=== PATIENT | female | born 1990 | race Two or more races ===

== ENCOUNTER 2024-04-27 06:25 | Inpatient (IN) | payer OTHER ==
[~2024-04-27] VITALS: Ht 157.5 cm; Wt 3.2 kg
[2024-04-27 08:05] VITALS: BP 126/82
[2024-04-27 08:42] LABS: HEMATOCRIT 36.7 % (36.0-45.00); HEMOGLOBIN 12.7 g/dL (12.0-15.00); MEAN CELL VOLUME 88.2 fL (80.00-100.00); MEAN CORPUSCULAR HEMOGLOBIN 30.5 pg (27.00-32.0); MEAN CORPUSCULAR HGB CONC 34.6 g/dl (32.0-36.0); PLATELET COUNT 212 K/uL (150-450); RED BLOOD COUNT 4.15 M/uL (4.00-6.00); RED CELL DISTRIBUTION WIDTH 13.6 % (11.5-14.5)
[2024-04-27 08:43] LABS: URINE APPEARANCE Cloudy; URINE BILIRRUBIN Negative (NEGATIVE); URINE BLOOD Negative; URINE COLOR Dark Yellow; URINE GLUCOSE Negative (NEGATIVE); URINE KETONE Negative (NEGATIVE); URINE LEUKOCYTE Negative; URINE NITRATE Negative; URINE PROTEIN Trace (NEGATIVE)
[2024-04-27] MEDS ORDERED: RINGERS SOLUTION,LACTATED 1,000 ML IV SCH ×2 (08:45→22:30)
[2024-04-27 08:46] LABS: URINE BACTERIA 3652.2 uL (0.0-1933); URINE RBC 8.8 uL (0.0-20.8); URINE WBC 25.8 uL (0.0-23.2)
[2024-04-27 09:03] LABS: INR < 0.93; PARTIAL THROMBOPLASTIN TIME 23.1 SECONDS (22.0-34.0); PROTHROMBIN TIME 10.2 SECONDS (9.0-11.5)
[2024-04-27 09:04] LABS: URINE CAST 0.29 uL (0.0-1.40); URINE EPITHELIAL CELLS > 201.7 uL (0.0-38.8)
[2024-04-27] MEDS ORDERED: MISOPROSTOL 50 MCG TABLET ONE (10:36)
[2024-04-27] MEDS ORDERED: MISOPROSTOL 50 MCG TABLET VAG STA (10:58)
[2024-04-27 11:46] VITALS: BP 127/69
[2024-04-27] MEDS ORDERED: OXYTOCIN 20 UNITS/500ML RL PIGGYBAG IV ONE (15:02)
[2024-04-27] MEDS ORDERED: OXYTOCIN 20 UNITS/500ML RL PIGGYBAG IV SCH (15:30)
[2024-04-27 15:33] VITALS: BP 121/74
[2024-04-27] MEDS ORDERED: PROMETHAZINE HCL 25 MG/ML AMPUL ONE (18:48)
[2024-04-27 19:02] VITALS: BP 138/71
[2024-04-27] MEDS ORDERED: PROMETHAZINE HCL 25 MG/ML AMPUL IV ONE (19:15)
[2024-04-27] MEDS ORDERED: MEPERIDINE HCL/PF 50 MG/ML VIAL IV ONE (19:15)
[2024-04-27] MEDS ORDERED: ERYTHROMYCIN BASE OPHT 1GM EACH TUBE OP ONE (20:24)
[2024-04-27] MEDS ORDERED: OXYTOCIN 10 UNITS/ML VIAL ONE ×2 (20:24→23:57)
[2024-04-27] MEDS ORDERED: CEFAZOLIN SODIUM 1,000 MG VIAL IV ONE (21:30)
[2024-04-27] MEDS ORDERED: KETOROLAC TROMETHAMINE 60 MG VIAL IM STA (22:19)
[2024-04-27] MEDS ORDERED: PROMETHAZINE HCL 25 MG/ML AMPUL IM PRN (22:30)
[2024-04-27] MEDS ORDERED: CHLORHEXIDINE GLUCONATE 120 ML BOTTLE TOP ONE (22:30)
[2024-04-27] MEDS ORDERED: MEPERIDINE HCL/PF 50 MG/ML VIAL IM PRN (22:30)
[2024-04-27] MEDS ORDERED: OXYTOCIN 1,000 ML IV SCH (22:30)
[2024-04-28 01:51] VITALS: BP 115/68
[2024-04-28 02:47] LABS: HEMATOCRIT 33.5 % (36.0-45.00); HEMOGLOBIN 11.4 g/dL (12.0-15.00); MEAN CELL VOLUME 90.5 fL (80.00-100.00); MEAN CORPUSCULAR HEMOGLOBIN 30.7 pg (27.00-32.0); MEAN CORPUSCULAR HGB CONC 33.9 g/dl (32.0-36.0); PLATELET COUNT 206 K/uL (150-450); RED CELL DISTRIBUTION WIDTH 13.2 % (11.5-14.5)
[2024-04-28 08:43] VITALS: BP 114/74
[2024-04-28] MEDS ORDERED: OxyCODONE HCL/APAP UD (PERCOCET) PO PRN (09:00)
[2024-04-28 16:00] VITALS: BP 127/72
[2024-04-29 01:22] VITALS: BP 110/71; O2SAT 100
[2024-04-29 07:35] VITALS: BP 100/61
[2024-04-29 18:01] VITALS: BP 114/73
[2024-04-30 00:15] VITALS: BP 109/70
[2024-04-30 08:00] VITALS: BP 104/69
[2024-04-30] MEDS ORDERED: IBUPROFEN800 MG PO (09:03)
== END 2024-04-30 12:38 | disposition home or self-care (01) | DRG 788 ==
LOC: LDR 06:25 → OB/GYN 21:08
PROVIDERS: ADMIT Obstetrics & Gynecology; ATTEND Obstetrics & Gynecology
PROC: 3E033VJ Introduction of Other Hormone into Peripheral Vein, Percutaneous Approach (ICD-10-PCS; 2024-04-27)
PROC: 3E0P7VZ Introduction of Hormone into Female Reproductive, Via Natural or Artificial Opening (ICD-10-PCS; 2024-04-27)
PROC: 4A1HXCZ Monitoring of Products of Conception, Cardiac Rate, External Approach (ICD-10-PCS; 2024-04-27)
PROC: 10D00Z1 Extraction of Products of Conception, Low, Open Approach (ICD-10-PCS; principal; 2024-04-27 20:00)
DX: O62.0 Primary inadequate contractions (principal); Z3A.40 40 weeks gestation of pregnancy; Z37.0 Single live birth; Z20.822 Contact with and (suspected) exposure to COVID-19